=== PATIENT | male | born 1940 | race Caucasian/White ===

== ENCOUNTER → 2017-01-10 | Outpatient (CLI) | payer OTHER ==
[~2017-01-10] MED LIST: ASPI-461 PO; ATOR-24 PO; GLC500 PO; LISI-729 PO; METO25TA3 PO; MULT-922 PO
--- NOTE | 2017-01-10 12:06 | DIAGNOSTIC IMAGING REPORT ---
CHEST CT WITHOUT CONTRAST CT DOSE: 589.69 mGycm HISTORY: R06.02 SOB (shortness of breath)J84.9 Interstitial lung disease TECHNIQUE: Multiaxial CT images of the chest were performed without contrast. COMPARISON: Chest 06/11/2016. FINDINGS: The central airways are patent. No pleural effusions. No pneumothorax. Peripheral suture material within the base of the right lower lobe consistent with prior wedge resection. Peripheral and basilar predominant subpleural reticulation persists. Scattered calcified and noncalcified pleural plaques remain unchanged. No new focal lung consolidations. The visualized liver, spleen, and adrenal glands are unremarkable. The heart is normal in size. Stable mediastinal lymph nodes. No hilar lymphadenopathy. Stable groundglass density within the anterior assess the right upper lobe likely represents chronic interstitial changes. IMPRESSION: 1. Interval postoperative changes within the right lower lobe. Otherwise, no significant change compared to the prior study. 2. Peripheral and basilar interstitial thickening favoring chronic interstitial lung disease. No new focal lung consolidations. 3. Small calcified and noncalcified pleural plaques are again noted. Electronically signed by: Danny Maria M.D. 01/10/2017 12:04 PM Dictated Date/Time: 01/10/2017 11:56 AM
== END | disposition home or self-care (01) ==
LOC: C.CTS 11:22
PROVIDERS: ATTEND Physician Assistant
DX: R09.1 Pleurisy (principal); J84.112 Idiopathic pulmonary fibrosis; R06.02 Shortness of breath

== ENCOUNTER → 2017-09-30 | Outpatient (CLI) | payer OTHER ==
[~2017-09-30] MED LIST changes: -METO25TA3 PO; +METO25TA4 PO
--- NOTE | 2017-09-30 10:36 | DIAGNOSTIC IMAGING REPORT ---
CHEST 2 VIEWS ROUTINE HISTORY: 77 years-old Male R06.02 SOB (shortness of breath)[id number] acute shortness of breath COMPARISON: Chest CT 01/10/2017, chest radiograph 07/16/2016 TECHNIQUE: PA and lateral views of the chest FINDINGS: Cardiac silhouette is again mildly enlarged. No pneumothorax, pleural effusion or focal lobar airspace consolidation to suggest pneumonia. Multifocal bilateral subpleural reticulation is again seen, notably within the mid and lower lung zones suggesting areas of chronic fibrosis. Postoperative changes of the right lower lobe. Previously noted calcified pleural plaques are better seen on comparison chest CT. Mild dextro scoliosis of the midthoracic spine. Degenerative changes are seen throughout the spine and shoulders. IMPRESSION: 1. No acute process. 2. Mild cardiomegaly without overt pulmonary edema. 3. Persistent subpleural reticular opacities within a mid and lower lung zone predominant distribution compatible with fibrotic lung disease. The above report was generated using voice recognition software. It may contain grammatical, syntax or spelling errors. Electronically signed by: Juan Diego Valdez M.D. 09/30/2017 10:34 AM Dictated Date/Time: 09/30/2017 10:32 AM
== END | disposition home or self-care (01) ==
LOC: C.RAD1850 10:16
PROVIDERS: ATTEND Physician Assistant
DX: R06.02 Shortness of breath (principal); R91.8 Other nonspecific abnormal finding of lung field

== ENCOUNTER → 2018-04-13 | Outpatient (CLI) | payer OTHER ==
--- NOTE | 2018-04-13 10:35 | DIAGNOSTIC IMAGING REPORT ---
CHEST 2 VIEWS ROUTINE CLINICAL HISTORY: Shortness of breath. COMPARISON STUDY: Chest radiograph September 30, 2017. FINDINGS: There is no pneumothorax or pleural effusion. Right midlung opacity was shown to represent interstitial thickening on CT of January 10, 2017. Lower lung predominant interstitial thickening is unchanged. Cardiomediastinal silhouette is stable. Postoperative findings within the right lower lung are noted. No superimposed consolidation is identified. IMPRESSION: 1. No acute cardiopulmonary findings. 2. No significant change in lower lung predominant interstitial thickening which represents interstitial lung disease. Electronically signed by: Dev Condon M.D. 04/13/2018 10:34 AM Dictated Date/Time: 04/13/2018 10:30 AM
== END | disposition home or self-care (01) ==
LOC: C.RAD1850 09:53
PROVIDERS: ATTEND Physician Assistant
DX: R06.02 Shortness of breath (principal)